=== PATIENT | female | born 1960 | race Caucasian/White ===

== ENCOUNTER 2024-08-31 15:16 | Emergency (ER) | payer OTHER ==
[~2024-08-31] VITALS: Ht 160 cm; Wt 63.6 kg
[2024-08-31 15:30] VITALS: TEMP 98.2
[2024-08-31] MEDS: PIPERACILLIN/TAZO 3.375 GM/D5W 50 ML IV ONE (17:13)
[2024-08-31 17:30] VITALS: BP 144/87; PULSE 76; RESP 17; O2SAT 99
[2024-08-31 17:49] LABS: BASOPHILS % (AUTO) 0.2 % (0.0-2.0); EOSINOPHILS % (AUTO) 3.2 % (1.0-6.0); HEMATOCRIT 33.3 % (36-46); LYMPHOCYTES # (AUTO) 1.4 K/uL (1.0-4.8); LYMPHOCYTES % (AUTO) 24.8 % (22.0-44.0); MEAN CORPUSCULAR HEMOGLOBIN 29.5 pg (26.0-34.0); MEAN CORPUSCULAR HGB CONC 32.9 G/dL (31.0-37.0); MEAN CORPUSCULAR VOLUME 90 fL (80-100); MONOCYTES # (AUTO) 0.5 K/uL (0.1-1.0); NEUTROPHILS # (AUTO) 3.4 K/uL (1.8-7.7); NEUTROPHILS % (AUTO) 61.8 % (40.0-70.0); PLATELET COUNT (AUTO) 223 K/uL (150-450); RED BLOOD CELL COUNT(AUTO) 3.71 MIL/uL (4.00-5.20); RED CELL DISTRIBUTION WIDTH 14.8 % (11.5-14.5); WHITE BLOOD COUNT (AUTO) 5.5 K/uL (4.5-11.0)
[2024-08-31 17:52] LABS: ANION GAP 4 mmol/L (8-16); CALCIUM, TOTAL 8.5 mg/dL (8.8-10.5); CARBON DIOXIDE 29 mmol/L (22-29); CHLORIDE 104 mmol/L (98-107); CREATININE 0.74 mg/dL (0.60-1.30); GLOMERULAR FILTR. RATE CALC > 60 mL/min (>60); GLUCOSE,RANDOM 103 mg/dL (70-110); SODIUM SERUM 137 mmol/L (136-145); UREA NITROGEN, BLOOD 25 mg/dL (7-18)
[2024-08-31 17:58] LABS: ALBUMIN 2.9 g/dL (3.4-5.0); BILIRUBIN,DIRECT 0.1 mg/dL (0.00-0.20); BILIRUBIN,TOTAL 0.3 mg/dL (0.1-1.0); TOTAL PROTEIN, SERUM 6.7 g/dL (6.4-8.2)
[2024-08-31 18:01] LABS: LACTIC ACID 1.2 mmol/L (0.4-2.0)
[2024-08-31] MEDS ORDERED: SULF1TAB42 PO (19:14)
== END 2024-08-31 19:21 | disposition home or self-care (01) ==
LOC: EMS 15:16
DX: L03.116 Cellulitis of left lower limb (principal); F20.9 Schizophrenia, unspecified; Z88.0 Allergy status to penicillin; Z88.5 Allergy status to narcotic agent
CPT/HCPCS: 99284; 96365; 80048; 80076; 83605; 85025; 87040; 36415; 93005; 84145; J2543